=== PATIENT | male | born 1945 | race Caucasian/White ===

== ENCOUNTER 2019-04-26 16:15 | Emergency (ER) | payer OTHER ==
[~2019-04-26] VITALS: Ht 172.7 cm; Wt 155.6 kg
[~2019-04-26 16:15] MED LIST: ASPIRIN81 MG PO; CINNAMON500 MG PO; GLIPIZIDE5 MG PO; HYDROCHLOROTHIA25 MG PO; LOSARTAN POTAS100 MG PO; METFORMIN HCL850 MG PO; METOPROLOL TART50 MG PO; NAPROXEN250 MG PO; OMEGA-31000 MG PO; OMEPRAZOLE40 MG PO; POTASSIUM CHLO10 ME1 PO; SIMVASTATIN80 MG PO; VITAMIN D32000 UNI1 PO
--- OUTSIDE RECORDS SUMMARY | 2019-04-26 16:20 | XMS REPORT | Encounter Summary ---
Author Organization Unknown Address [address] [place] [address] Phone [phone] Care Team Providers Care Automobile Tester Name Role Phone Dr. Shane Camacho 3 [phone] Reason for Visit hypertension; diabetes Instructions 1. Psoriasis dermatology referral - [place] location Please contact patient to schedule. Thank you! 2. Morbid obesity learning about healthy weight 3. Diabetes mellitus 4. Hypertensive disorder 5. Dyslipidemia 6. Benign prostatic hypertrophy without outflow obstruction urology referral - Please contact patient to schedule. Thank you! 7. Senile purpura Discussion Note: None recorded. Plan of Care Reminders Provider Appointments None recorded. Lab None recorded. Referral Dermatology Referral 01/26/2019 Gaurang Connors MD Urology Referral 01/26/2019 Neymar Lizama MD Procedures None recorded. Surgeries None recorded. Imaging None recorded. Medications Name Start Date Allergy allopurinol 300 mg tablet Take 1 tablet every day by oral route. biotin celecoxib 200 mg capsule Take 1 capsule every day by oral route. Cinnamon clotrimazole 1 %-betamethasone 0.05 % cream-zinc ox 20 % paste topical Fish Oil furosemide 40 mg tablet Take 1 tablet twice a day by oral route. gabapentin 300 mg capsule Take 1 capsule 3 times a day by oral route. glipizide 10 mg tablet Take 1 tablet twice a day by oral route. ketoconazole 2 % topical cream APPLY TO THE AFFECTED AREA(S) BY TOPICAL ROUTE ONCE DAILY losartan 100 mg tablet Take 1 tablet every day by oral route. metformin ER 1,000 mg tablet,extended release 24hr Take 1 tablet twice a day by oral route. metoprolol succinate ER 50 mg tablet,extended release 24 hr Take 0.5 tablets twice a day by oral route. omeprazole 20 mg capsule,delayed release Take 1 capsule every day by oral route. potassium simvastatin 80 mg tablet Take 0.5 tablets every day by oral route at bedtime. tamsulosin 0.4 mg capsule Take 1 capsule every day by oral route. Vitamin D3 Medications Administered None recorded. Vitals Height Weight BMI Blood Pressure 5 ft 9 in 345 lbs 50.9 kg/m2 (1) 144/82 mm[Hg] (2) 110/70 mm[Hg] Results Lab Results None recorded. Allergies Code Code System Name Reaction Severity Status Onset NKDA Problems Name Status Onset Date Source Diabetes Mellitus Active 01/26/2019 Dyslipidemia Active 01/26/2019 Gout Active 01/26/2019 Hypertensive Disorder Active 01/26/2019 Gastroesophageal Reflux Disease Active 01/26/2019 Benign Prostatic Hyperplasia Active 01/26/2019 Osteoarthritis Active 01/26/2019 Sleep Apnea Active 01/26/2019 History of Calculus of Kidney Active 01/26/2019 Repair of Inguinal Hernia Active 01/26/2019 Appendectomy Active 01/26/2019 Total Knee Replacement Active 01/26/2019 Morbid Obesity Active 02/01/2019 Senile Purpura Active 02/01/2019 Benign Prostatic Hypertrophy without Outflow Obstruction Active 02/01/2019 Psoriasis Active 02/01/2019 Procedures Date Name Performed by 02/21/2017 Other Information not available 02/22/2016 Eye Surgery Information not available 02/21/2007 ENT Surgery (Ear, Nose, Throat) Information not available 02/21/2003 Ankle Arthroscopy/surgery Information not available 02/21/1983 Appendectomy Information not available Colonoscopy Information not available Hernia Repair Information not available Orthopedic Surgery Information not available Vaccine List Vaccine Type influenza, injectable, quadrivalent 10/22/2018 Social History Tobacco Smoking Status Never Smoker Past Encounters 01/26/2019 Psoriasis; Morbid Obesity; Diabetes Mellitus; Hypertensive Disorder; Dyslipidemia; Benign Prostatic Hypertrophy without Outflow Obstruction; Senile Purpura Ana Almendarez MD: [address] [place] [address], Ph. History of Present Illness Note:73 yr male here for first time to establish care.<div>previous PMD: Dr. Johns
<div>[facility] [place] ( Dr[facility] Galindo Mary) as PMD. last labs done 11/2018.
<div>Follows up every 6 months. </div><div>
</div ><div>1. T2DM

</div><div>last A1c: unknown
current med(s): Glipizide
medication compliance: daily
adverse reactions: no
diet and exercise: no
Denies polyuria, polydipsia, hypoglycemic episodes, acute visual changes
Prescribed ACEi & Statin: Losartan and zocor.
Eye Exam within last year: yes. has an appt Feb 03 2019.

</div><div>
< /div><div>2. HTN
current med(s): Metoprolol, Furosemide and losartan
medication compliance: daily
adverse reactions: no / yes
diet and exercise: no / yes
Denies HAs, CP, SOB, acute visual changes

</div>< div>
</div><div>pmh: DM, osteoarthritis, dyslipidemia, HTN, GERD, BPH, kidney stones, sleep apnea and does not use the machine, was recommended. use of power chair and scooter for approx 12 years( 2006) and uses it for long distance. 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 </div><div>
</div><div>psh: Right inguinal hernia, Right ankle fusion, left knee replacement( dr. Conteh, orthopedic surgeon), appendectomy, sinuplasty, b/l eyelid repair.</div><div>
</div><div> Last colonoscopy 3 years ago, unsure of the name.</div><div>
</div><div> Urologist: Dl Godoy ( [phone]). </div></div><div>
</div></div> Review of Systems:ROS as noted in the HPI Review of Systems Comprehensive Adult Problem ROS Reported By: Patient Constitutional: Constitutional: no significant weight change, no fatigue Eyes: Eyes: ; denies vision disturbances Cardiovascular: Cardiovascular: no chest pain, normal heart rate; no pedal edema Respiratory: Respiratory: no cough, no wheezing, no chest tightness, normal respiration Gastrointestinal: GI: no abdominal pain, no vomiting, no diarrhea, no constipation Musculoskeletal: Musculoskeletal: no soft tissue swelling, no joint swelling Skin: Skin: no rash Neurological symptoms: Neuro: no numbness, no tingling, no headache, no dizziness Psychiatric: Psych: no depression, no anxiety Physical Exam General Adult Exam (male), General Adult Exam (Female) Reported By: Patient Constitutional: General Appearance: healthy-appearing, well-developed, morbidly obese. Level of Distress: NAD. Ambulation: ambulating normally Psychiatric: Mental Status: active and alert, normal mood, normal affect. Orientation: to time, to place, to person Eyes: Pupils: PERRLA. EOM: EOMI. Sclerae: non-icteric Lungs: Respiratory effort: no dyspnea. Auscultation: breath sounds normal, good air movement, no wheezing, no rales/crackles, no rhonchi Cardiovascular: Apical Impulse: not displaced. Heart Auscultation: RRR, normal S1, normal S2, no murmurs Abdomen: Bowel Sounds: normal. Inspection and Palpation: soft, non-distended, no tenderness, no guarding, no rebound tenderness, no masses, no CVA tenderness; abdominal obesity. Liver: non-tender, no hepatomegaly. Spleen: non-tender, no splenomegaly Musculoskeletal:: Joints, Bones, and Muscles: normal movement of all extremities. Extremities: no edema Neurologic: Gait and Station: normal gait, normal station Skin: Inspection and palpation: no rash, decreased turgor; surgical scar left knee
--- OUTSIDE RECORDS SUMMARY | 2019-04-26 16:20 | XMS REPORT | Encounter Summary ---
Author Organization Unknown Address [address] [place] [id number] Phone [phone] Care Team Providers Care Wood Scaler Name Role Phone Dr. Ana Almendarez 3 [phone] Gaurang Connors MD 105 [phone] Garrett Mccollum MD 107 [phone] Tricia Allen MD 111 [phone] Neymar Lizama MD 115 [phone] Mary Galindo MD 119 [phone] Reason for Visit Cellulitis and abscess of buttock; other - see typed reason Instructions 1. Cellulitis and abscess of buttock Keflex 500 mg capsule 2. Sleep apnea sleep study referral 3. Morbid obesity learning about healthy weight Discussion Note: None recorded. Plan of Care Reminders Provider Appointments Return to Office on or around 05/12/2019 Nazia Rosario NP Lab None recorded. Referral Sleep Study Referral 04/13/2019 Procedures None recorded. Surgeries None recorded. Imaging None recorded. Medications Name Start Date allopurinol 300 mg tablet Take 1 tablet every day by oral route. bacitracin 500 unit/gram topical ointment Apply 1 application 3 times a day by topical route as needed. biotin daily celecoxib 200 mg capsule Take 1 capsule every day by oral route as needed. Cinnamon daily clotrimazole 1 %-betamethasone 0.05 % cream-zinc ox 20 % paste topical daily prn Fish Oil daily furosemide 40 mg tablet Take 1 tablet twice a day by oral route. gabapentin 300 mg capsule Take 1 capsule every day by oral route. glipizide 10 mg tablet Take 1 tablet twice a day by oral route. hydrocortisone 2.5 % topical cream daily prn Januvia 50 mg tablet Take 1 tablet every day by oral route. Keflex 500 mg capsule Take 1 capsule 3 times a day by oral route for 10 days. ketoconazole 2 % topical cream APPLY TO [...] capsule every day by oral route. potassium daily simvastatin 80 mg tablet Take 0.5 tablets every day by oral route at bedtime. tamsulosin 0.4 mg capsule Take 1 capsule every day by oral route. Vitamin D3 daily Medications Administered None recorded. Vitals Height Weight BMI Blood Pressure 5 ft 9 in 346 lbs 51.1 kg/m2 110/54 mm[Hg] Results Lab Results Date Name Specimen Result Interpretation Description Value Range Status Address 03/30/2019 Microalbumin/creatinine, Mass Ratio, Urine Microalbumin Random Urine 5 ug/mL Final [facility] Laboratory: [facility] Britany Crisostomo [address] Normal Creatinine Random Urine 96.9 mg/dL 20.0-370.0 mg/dL Final [facility] - Laboratory: [address] Britany Jaimesfemi [address] Normal Microalbumin/creatinine (Random Urine) Ratio Calculated 5 mcg/mg creat Final [facility] - Laboratory: [address] Britany Crisostomo [address] 03/30/2019 Lipid Panel, Serum Low Hdl 38 mg/dL Final [facility] - Laboratory: [address] Britany Crisostomo [address] Triglyceride 130 mg/dL <150 mg/dL Final [facility] Laboratory: [address] Britany Crisostomo [address] VLDL (Calculated) 26 mg/dL Final [facility] Laboratory: [address] Britany Crisostomo [address] cholesterol/HDL Ratio 4.4 mg/dL Final [facility] - Laboratory: [address] Britany Crisostomo [address] non-HDL Cholesterol (Calculated) 130 mg/dL <160 mg/dL Final [facility] - Laboratory: [address] Britany Crisostomo [address] Cholesterol 168 mg/dL <200 mg/dL Final [facility] Laboratory: [address] Britany Crisostomo [address] LDL (Calculated) 104 mg/dL <130 mg/dL Final [facility] Laboratory: [address] Britany Crisostomo [address] 03/30/2019 TSH, Serum or Plasma Tsh 3.168 uIU/mL 0.350-4.940 uIU/mL Final [facility] - Laboratory: [address] Britany [address] [place] 03/30/2019 HbA1C (Hemoglobin a1C), Blood High A1C W/eag 7.7 % 1.0-5.7 % Final [facility] - Laboratory: [address] Britany [address] [place] Average Blood Glucose 174 mg/dL Final [facility] Laboratory: [address] Britany Lopez [place] 03/30/2019 CBC W/ Auto Diff Normal White Blood Cell Count 6.1 thousand/uL 3.8-10.8 thousand/uL Final [facility] Laboratory: [address] Britany [address] [place] Normal Red Blood Cell Count 4.53 million/uL 4.20-5.80 million/uL Final [facility] Laboratory: [address] Britany [address] [place] Low Hemoglobin 12.5 g/dL 13.2-17.1 g/dL Final [facility] Laboratory: [address] Britany [address] [place] Normal Hematocrit 38.6 % 38.5-50.0 % Final [facility] Laboratory: [address] Britany [address] [place] Normal Mcv 85.2 fL 80.0-100.0 fL Final [facility] Laboratory: [address] Britany [address] [place] Normal Mch 27.6 pg 27.0-33.0 pg Final [facility] [facility] Mchc 32.4 g/dL 32.0-36.0 g/dL Final [facility]: [address] Britany [address] [place] Normal Rdw 13.4 % 11.0-15.0 % Final [facility]: [address] Britany [address] [place] Normal Platelet Count 202 thousand/uL 140-400 thousand/uL Final [facility] Laboratory: [address] Britany [address] [place] Normal Mpv 10.2 fL 7.5-12.5 fL Final [facility]: [address] [facility] Normal Absolute Neutrophils 3971 cells/uL 6409-0265 cells/uL Final [facility]: [address] [facility] Normal Absolute Lymphocytes 1312 cells/uL 850-3900 cells/uL Final [facility] Laboratory: [address] Britany Lopez, [place] Normal Absolute Monocytes 610 cells/uL 200-950 cells/uL Final [facility]: [address] Britany Lopez, [place] Normal Absolute Eosinophils 159 cells/uL 15-500 cells/uL Final [facility]: [address] Britany Lopez, [place] Normal Absolute Basophils 49 cells/uL 0-200 cells/uL Final [facility]: [address] Britany Lopez, [place] Normal Neutrophils 65.1 % Final [facility] Laboratory: [address] Britany Lopez, [place] Normal Lymphocytes 21.5 % Final [facility]: [address] Britany Lopez, [place] Normal Monocytes 10.0 % Final [facility]: [address] Britany Lopez, [place] Normal Eosinophils 2.6 % Final [facility]: [address] Britany Lopez, [place] Normal Basophils 0.8 % Final [facility] Laboratory: [address] Britany Lopez, [place] Comment Final [facility]: [address] [facility] 03/30/2019 CMP, Serum or Plasma High Glucose 145 mg/dL 65-99 mg/dL Final [facility] Laboratory: [address] Britany Horne [address] [place] [address] Normal Urea Nitrogen (BUN) 18 mg/dL 7-25 mg/dL Final [facility] Laboratory: [address] Britany Horne [address] [place] [address] High Creatinine 1.28 mg/dL 0.70-1.18 mg/dL Final [facility] Laboratory: [address] Britany Crisostomo [address] Low eGFR Non-afr. Citizen Of [place] 56 mL/min/1.73m2 > or=60 mL/min/1.73m2 Final [facility]: [address] Britany Horne [address] [place] [address] Normal eGFR 64 mL/min/1.73m2 > or=60 mL/min/1.73m2 Final [facility] Laboratory: [address] Britany Horne [address] [place] [address] Normal BUN/creatinine Ratio 14 (calc) 6-22 (calc) Final [facility]: [address] Britany Horne [address] [place] [address] Normal Sodium 146 mmol/L 135-146 mmol/L Final [facility] Laboratory: [address] Britany Horne [address] [place] [address] Normal Potassium 4.1 mmol/L 3.5-5.3 mmol/L Final [facility] Laboratory: [address] Britany Crisostomo [address] Normal Chloride 103 mmol/L 98-110 mmol/L Final [facility]: [address] Britany Horne [address] [place] [address] Normal Carbon Dioxide 25 mmol/L 20-32 mmol/L Final [facility] Laboratory: [address] Britany Horne [address] [place] [address] Normal Calcium 9.5 mg/dL 8.6-10.3 mg/dL Final [facility]: [address] Britany Crisostomo [address] Normal Protein, Total 6.3 g/dL 6.1-8.1 g/dL Final [facility]: [address] Britany Crisostomo [address] Normal Albumin 4.0 g/dL 3.6-5.1 g/dL Final [facility]: [address] Britany Crisostomo [address] Normal Globulin 2.3 g/dL (calc) 1.9-3.7 g/dL (calc) Final [facility] Laboratory: [address] Britany Crisostomo [address] Normal Albumin/globulin Ratio 1.7 (calc) 1.0-2.5 (calc) Final [facility]: [address] Britany Crisostomo [address] Normal Bilirubin, Total 0.4 mg/dL 0.2-1.2 mg/dL Final [facility]: [address] Britany Crisostomo [address] Normal Alkaline Phosphatase 69 U/L 35-144 U/L Final [facility]: [address] Britany Crisostomo [address] Normal Ast 17 U/L 10-35 U/L Final [facility]: [address] Britany Crisostomo [address] Normal Alt 25 U/L 9-46 U/L Final [facility]: [address] Britany Crisostomo [address] Allergies Code Code System Name Reaction Severity [...] Outflow Obstruction Active 02/01/2019 Psoriasis Active 02/01/2019 Cellulitis and Abscess of Buttock Active 04/13/2019 Procedures Date Name Performed by 02/21/2017 Other Information not available 02/22/2016 Eye Surgery Information not available 02/21/2007 ENT Surgery (Ear, Nose, Throat) Information not available 02/21/2003 Ankle Arthroscopy/surgery Information not available 02/21/1983 Appendectomy Information not available Colonoscopy Information not available Hernia Repair Information not available Orthopedic Surgery Information not available 03/30/2019 [facility] [address] [facility] [address] [place] [address] (Work Place) Vaccine List Vaccine Type influenza, injectable, quadrivalent 10/22/2018 pneumococcal, unspecified formulation 10/22/2018 zoster recombinant 0.5 mL Social History Tobacco Smoking Status Never Smoker Past Encounters 04/13/2019 Cellulitis and Abscess of Buttock; Sleep Apnea; Morbid Obesity Nazia Rosario, RN STAFFING: [address] [place] [address], Ph. 03/30/2019 Adult Health Examination; Morbid Obesity; Advance Directive Discussed with Patient; Depression Screening; Immunization; At Risk for Falls; Cellulitis and Abscess of Buttock; Diabetes Mellitus; Dyslipidemia; Benign Prostatic Hypertrophy without Outflow Obstruction; Hypertensive Disorder; Chronic Back Pain; Screening for Osteoporosis; Reduced Mobility Nazia Rosario RN STAFFING: [address] [place] [address], Ph. History of Present Illness Note:Follow up visit here with his : Abscess to buttocks<div>completed the course of doxycycline with improvement in the abscess, did not follow up with general surgeon as sx improved. Wants to consider extending the course of antibiotics for complete resolution. </div><div>
</div><div>Hx of sleep apnea and had declined cpap in the past, Per , wants to consider home based sleep study. </div><div>
</div><div>plans to start with PT at home this afternoon to improve mobility </div> Review of Systems Comprehensive General Adult ROS Reported By: Patient Constitutional: Constitutional: no fever, no night sweats Eyes: Eyes: no vision change ENMT: Ears: no ear pain. Nose: no nose problems, no sinus problems. Mouth/Throat: no sore throat Cardiovascular: Cardiovascular: no chest pain, no shortness of breath when walking, no shortness of breath when lying down, no palpitations, no lightheadedness Respiratory: Respiratory: no cough, no wheezing, no shortness of breath Gastrointestinal: Gastrointestinal: no abdominal pain, no nausea, no vomiting, no constipation, no diarrhea Integumentary: Skin: no rashes, growths/lesions Neurologic: Neurologic: no weakness, no numbness, no dizziness, no headaches Endocrine: Endocrine: no fatigue Physical Exam General Adult Exam (male) Reported By: Patient Constitutional: General Appearance: healthy-appearing, well-developed, morbidly obese. Level of Distress: NAD. Ambulation: ambulation with walker Psychiatric: Mental Status: active and alert, normal mood, normal affect. Orientation: to time, to place, to person Lungs: Respiratory effort: no dyspnea. Auscultation: breath sounds normal, good air movement, no wheezing, no rales/crackles, no rhonchi Cardiovascular: Heart Auscultation: RRR Abdomen: Bowel Sounds: normal. Inspection and Palpation: soft, non-distended, no tenderness, no guarding, no masses; abdominal wall obesity. Liver: non-tender, no hepatomegaly. Spleen: non-tender, no splenomegaly Musculoskeletal:: Joints, Bones, and Muscles: normal movement of all extremities. Extremities: ; use of b/l lower leg compression stockings noted, unable to access for edema Neurologic: Gait and Station: normal gait, normal station Skin: Inspection and palpation: no rash, good turgor, lesion
--- OUTSIDE RECORDS SUMMARY | 2019-04-26 16:20 | XMS REPORT | Encounter Summary ---
Author Organization Unknown Address [address] [place] [address] Phone [phone] Care Team Providers Care Process Designer Name Role Phone Dr. Ana Almendarez 3 [phone] Gaurang Connors MD 105 [phone] Garrett Vivar MD 107 [phone] Neymar Lizama MD 115 [phone] Reason for Visit joint problem(s); Annual Depression Screening; AWV Annual Wellness Visit Male; Advance Care Plan; mass Instructions 1. Adult health examination TSH, serum or plasma 2. Morbid obesity learning about healthy weight 3. Advance directive discussed with patient advance care planning: care instructions advance care planning: care instructions 4. Depression screening learning about depression 5. Immunization Shingrix (PF) 50 mcg/0.5 mL intramuscular suspension, kit 6. At risk for falls preventing falls: care instructions 7. Cellulitis and abscess of buttock doxycycline monohydrate 100 mg capsule general surgery referral bacitracin 500 unit/gram topical ointment CBC w/ auto diff 8. Diabetes mellitus microalbumin/creatinine, mass ratio, urine HbA1c (hemoglobin A1c), blood 9. Dyslipidemia lipid panel, serum 10. Benign prostatic hypertrophy without outflow obstruction 11. Hypertensive disorder 12. Chronic back pain orthopedic referral acute low back pain: exercises hip arthritis: exercises knee: exercises 13. Screening for osteoporosis DEXA - Please contact patient to schedule. Thank you! 14. Reduced mobility home health referral physical therapy referral occupational therapy referral Discussion Note: None recorded. Plan of Care Patient Instructions It was good to see you in the office today for your Medicare Annual Wellness Visit. You have been provided some information on healthy nutrition, including a diet rich in fruits and vegetables, minimizing simple carbohydrates, salt, and saturated fats. I want to encourage regular cardiovascular exercise such as walking at least 30 minutes daily, 5 times per week. Please remember to schedule any preventive health measures that we talked about today. You have also been provided education on fall prevention and community- based lifestyle interventions to help reduce health risks and promote healthy living in your Annual Wellness folder. Screening Recommendations 1. Vaccines Pneumonia: No further need Influenza: Next Fall 2. Colorectal Cancer Screening: Colonoscopy (every 10 years) 3. Annual Prostate Screening 4. Annual Depression Screening 5. Annual Alcohol Screening 6. Annual Fall Risk Screening 7. Annual Health Risk Assessment Patient Instructions on Filing Advance Directives Be sure that you have easy access to your paperwork for your medical power of manager safe and advanced directives. Be sure that the designated person as well as important family members have copies of those forms as well. Please have contact information of your designee readily available. In the event of hospitalization, please bring those important documents with you for reference. Reminders Provider Appointments Est Patient 04/13/2019 1:30PM Nazia Rosario NP Lab Lipid Panel, Serum 03/30/2019 [facility] CBC W/ Auto Diff 03/30/2019 [facility] Microalbumin/creatinine, Mass Ratio, Urine 03/30/2019 [facility] HbA1C (Hemoglobin a1C), Blood 03/30/2019 [facility] TSH, Serum or Plasma 03/30/2019 [facility] Referral General Surgery Referral 03/30/2019 Steve Berman MD Orthopedic Referral 03/30/2019 Home Health Referral 03/30/2019 Physical Therapy Referral 03/30/2019 Occupational Therapy Referral 03/30/2019 Procedures None recorded. Surgeries None recorded. Imaging Dexa 03/30/2019 [facility] Medications Name Start Date allopurinol 300 mg [...] ox 20 % paste topical daily prn doxycycline monohydrate 100 mg capsule Take 1 capsule twice a day by oral route for 10 days. Fish Oil daily furosemide 40 mg tablet [...] BMI Blood Pressure 5 ft 9 in 348 lbs 51.4 kg/m2 136/82 mm[Hg] Results Lab Results None recorded. Allergies [...] Orthopedic Surgery Information not available 03/30/[address] [facility] [address] [place] [address] (Work Place) Vaccine List Vaccine Type influenza, injectable, quadrivalent 10/22/2018 pneumococcal, unspecified formulation 10/22/2018 zoster recombinant 0.5 mL Social History Tobacco Smoking Status Never Smoker Past Encounters 03/30/2019 Adult Health Examination; Morbid Obesity; Advance Directive Discussed with Patient; Depression Screening; Immunization; At Risk for Falls; Cellulitis and Abscess of Buttock; Diabetes Mellitus; Dyslipidemia; Benign Prostatic Hypertrophy without Outflow Obstruction; Hypertensive Disorder; Chronic Back Pain; Screening for Osteoporosis; Reduced Mobility Nazia Rosario, [employer]ER: [address] [place] [address], Ph. History of Present Illness Mini Cog Reported By: Patient Functional Ability: Personal/Social/ Draw a clock and write in the numbers in the correct place, and set the time to 10 minutes after 11 o'clock was completed correctly? Yes, 3 word recall: Your nurse or doctor will ask you to remember 3 words. In 5 minutes, they will ask you to repeat them. Patient recalled 3 words Opioid Use Assessment Reported By: Patient Opioid Use Assessment:: Current Use of Opioids : no use of opioids (no further questions required) Note:I'd like to talk about what is ahead with your illness and do some thinking in advance about what is important to you so I can make sure we provide you with the care you want-is that okay? <div>{{Yes*|No}}</div><div>
</div><div> 1. Here with for AMW </div><div>
</div><div>2. Has a mass near rectum which has grown in size x 1 month. has been using otc meds without improvement. </div><div>
</div><div>3. Chronic hips, knee and lower back pain since years. Had left knee replacement and was advised to have right knee replacement, has been holding on to it. </div><div>
</div><div>Under care of [place] doctor and last seen in Nov 2018. </div><div>
</div><div>Has sleep apnea and was advised cpap machine </div><div>
</div><div>last colonoscopy [address] vivar. </div><div>
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 Hx of right ankle fusion and has limited mobility. per patient is very limited with mobility and wants to consider home based therapy to improve it. </div><div >
</div> Review of Systems Comprehensive General Adult [...] nausea, no vomiting, no constipation, no diarrhea Musculoskeletal: Musculoskeletal: no swelling in the extremities, arthralgias/joint pain, back pain Integumentary: Skin: no rashes, growths/lesions Neurologic: Neurologic: no weakness, no numbness, no dizziness, no headaches Endocrine: Endocrine: no fatigue Physical Exam General Adult Exam (male) Reported By: Patient Constitutional: General Appearance: healthy-appearing, well-developed, morbidly obese. Level of Distress: NAD. Ambulation: ambulation with cane Psychiatric: Mental Status: active and alert, normal [...] Inspection and palpation: no rash, good turgor, lesion"
[2019-04-26] MEDS ORDERED: SODIUM CHLORIDE 0.9% 1000ML 1,000 ML IV STA (17:18)
[2019-04-26 17:34] LABS: BASOPHILS % 0.5 % (0.0-1.0); EOSINOPHILS # (AUTO) 0.2 (0.0-0.4); EOSINOPHILS % 2.4 % (0.0-6.0); HEMATOCRIT 39.8 % (38.2-49.6); HEMOGLOBIN 12.6 g/dL (14.0-18.0); LYMPHOCYTES % 14.9 % (18.0-39.1); MEAN CORPUSCULAR HEMOGLOBIN 27.8 pg (28-32); MEAN CORPUSCULAR HGB CONC 31.7 g/dL (31-35); MEAN CORPUSCULAR VOLUME 87.7 fL (81-99); MONOCYTES # (AUTO) 0.7 (0.2-0.8); MONOCYTES % 10.7 % (4.4-11.3); NEUTROPHILS # (AUTO) 4.7 (2.1-6.9); PLATELET COUNT 182 x10e3/uL (140-360); RED BLOOD COUNT 4.54 x10e6/uL (4.3-5.7); RED CELL DISTRIBUTION WIDTH 14.1 % (11.7-14.4)
[2019-04-26 17:46] LABS: INR 0.94; PARTIAL THROMBOPLASTIN TIME 32.5 seconds (23.8-35.5); PROTHROMBIN TIME 13.1 seconds (11.9-14.5)
[2019-04-26 17:58] LABS: ALANINE AMINOTRANSFERASE 28 IU/L (0-55); ALBUMIN 3.6 g/dL (3.5-5.0); ALBUMIN/GLOBULIN RATIO 1.1 (0.8-2.0); ALKALINE PHOSPHATASE 69 IU/L (40-150); ANION GAP 11.2 mmol/L (8-16); BLOOD UREA NITROGEN 13 mg/dL (7-26); BUN/CREATININE RATIO 11 (6-25); CALCIUM 9.6 mg/dL (8.4-10.2); CARBON DIOXIDE 28 mmol/L (22-29); CHLORIDE 104 mmol/L (98-107); CREATINE KINASE 34 IU/L (30-200); CREATININE, SERUM 1.18 mg/dL (0.72-1.25); EST GLOMERULAR FILTRATION RATE > 60 ML/MIN (60-); GLUCOSE 128 mg/dL (74-118); MAGNESIUM 1.7 MG/DL (1.3-2.1); POTASSIUM 4.2 mmol/L (3.5-5.1); SODIUM 139 mmol/L (136-145)
--- NOTE | 2019-04-26 17:58 | Diagnostic Imaging Report ---
EXAMINATION: CHEST SINGLE (PORTABLE) INDICATION: ^AMS ^[id number] ^[id number] COMPARISON: None FINDINGS: AP view TUBES and LINES: None. LUNGS: Lungs are not well inflated. There is bronchovascular crowding likely due to underdistention. There is no evidence of pneumonia or pulmonary edema. PLEURA: No pleural effusion or pneumothorax. HEART AND MEDIASTINUM: The cardiomediastinal silhouette is unremarkable. BONES AND SOFT TISSUES: No acute osseous lesion. Soft tissues are unremarkable. UPPER ABDOMEN: No free air under the diaphragm. IMPRESSION: No acute thoracic abnormality. Signed by: Heron Gaitan MD on 04/26/2019 5:56 PM
[2019-04-26] MEDS ORDERED: PIPER-TAZ 3.375 GM 50 ML IV ONE (18:00)
[2019-04-26 18:02] LABS: B-TYPE NATRIURETIC PEPTIDE2 107.8 pg/mL (0-100)
[2019-04-26] MEDS ORDERED: VANCOMYCIN 1GM/NS 250 ML 250 ML IV STA (18:23)
--- NOTE | 2019-04-26 18:32 | Diagnostic Imaging Report ---
EXAMINATION: Head CT HISTORY: Alteration of consciousness, possible sepsis COMPARISON: None. TECHNIQUE: Multidetector axial images were obtained without contrast from the foramen magnum to the vertex . The images were reconstructed using brain and bone algorithms. Thin section brain images were reformatted into coronal and sagittal planes. Image quality: Motion/streaking artifact limits the evaluation of the skull base and posterior cranial fossa. Dose modulation, iterative reconstruction, and/or weight based adjustment of the mA/kV was utilized to reduce the radiation dose to as low as reasonably achievable. FINDINGS: Parenchyma: Ill-defined approximately 5.5 cm AP diameter oval-shaped hypoattenuating lesion in the right frontal centrum semiovale/chu radiata, with prominent associated surrounding vasogenic edema and mild local mass effect, there is partial effacement of the right frontal horn, no midline shift or herniation at this time. This may correspond to a fluid collection such as an abscess versus primary or metastatic neoplasm, or resolving hematoma in the appropriate clinical setting among other causes. Prominent subcortical white matter hypodensity along the right superior frontal gyrus may correspond to associated edema to above-mentioned lesion versus additional area of abnormality. Cortico-subcortical encephalomalacia in the left lateral posterior central gyrus, sequela from chronic infarct along the the left MCA distribution. Few scattered white matter hypodensities, olfactory nonspecific chronic microvascular ischemic changes. Questionable left inferior frontal cortico-subcortical hypodensity versus streak artifact. Otherwise no intracranial hemorrhage or cortical infarcts. Extra-axial spaces:No abnormal density. No extra-axial fluid collections Brain volume: Normal for age. Ventricles: No hydrocephalus or displacement. Arteries: No density suggestive of thrombus. Dural sinuses: No abnormal density. Foramen magnum: No mass, Chiari malformation, or basilar invagination. Sella: No obvious mass. Paranasal/mastoid sinuses: Heterogeneous density partially calcified mass versus polyp within the right ostiomeatal unit results in complete opacification of the right anterior ethmoidal and maxillary sinuses. Skull/Scalp: No lytic or blastic lesions. No fractures. IMPRESSION: 1. Hypodense lesion in the right frontal lobe may correspond to a fluid collection such an abscess given history of sepsis, a brain MRI without and with contrast is recommended for further characterization. 2. Chronic left parietal cortical infarct. 3. Complete opacification of the right ethmoidal and maxillary sinuses as described. The findings were discussed with the ER physician Dr. Fitzgerald on 04/26/2019 at 6:15 PM Signed by: Dr. Yasmeen Maya M.D. on 04/26/2019 6:30 PM
[2019-04-26 18:47] LABS: BILIRUBIN,URINE NEGATIVE (NEGATIVE); CLARITY,URINE SL CLOUDY (CLEAR); COLOR,URINE YELLOW (YELLOW); KETONES,URINE TRACE (NEGATIVE); LEUKOCYTE ESTERASE ,URINE NEGATIVE (NEGATIVE); NITRITE,URINE NEGATIVE (NEGATIVE); PROTEIN,URINE DIPSTICK NEGATIVE (NEGATIVE); URINE UROBILINOGEN 0.2 mg/dL (0.2 - 1)
[2019-04-26 19:12] LABS: EPITHELIAL CELLS,URINE RARE /LPF
[2019-04-26] MEDS ORDERED: DEXAMETHASONE SOD PHOS 10 MG/1 ML VIAL IV ONE (19:15)
--- NOTE | 2019-04-26 19:49 | NUR ---
TRANSFER INITIATED AT THIS TIME. 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
--- NOTE | 2019-04-26 19:51 | NUR ---
DR. TAVERA SPOKE WITH ACCEPTING PHYSICIAN, DR. ALBERTO AT THIS TIME.
[2019-04-26] MEDS ORDERED: VANCOMYCIN 1GM/NS 250 ML 250 ML ONE (21:24)
[2019-04-26 22:46] VITALS: BP 188/94
== END 2019-04-26 23:02 | disposition short-term general hospital (02) ==
LOC: ER 16:15
DX: R22.0 Localized swelling, mass and lump, head (principal); I10 Essential (primary) hypertension; E11.9 Type 2 diabetes mellitus without complications; F43.10 Post-traumatic stress disorder, unspecified
CPT/HCPCS: 36415; 70450; 71045; 80053; 81001; 82550; 82553; 83605; 83735; 83880; 84484; 85025; 85610; 85730; 87040; 87086; 93005; 99284; J1100; J2543; J3370; J7030